=== PATIENT | male | born 1950 | race Caucasian/White ===

== ENCOUNTER → 2017-12-27 | Outpatient (CLI) | payer MEDICARE, OTHER ==
[~2017-12-27] MED LIST: ACE3 PO; ACE325 PO; ACE500 PO; GABA-549 PO; KET10 PO; NAPR-1043 PO; OMEP-218 PO; OXYC-868 PO; PER PO; TRAM100T22 PO; TUM500 PO
== END ==
LOC: LAB 11:12
PROVIDERS: ATTEND Family Medicine
DX: R19.7 Diarrhea, unspecified (principal)
CPT/HCPCS: 83630; 87045; 87269; 87324; 87449